=== PATIENT | female | born 1955 | race Caucasian/White ===

== ENCOUNTER 2023-12-26 17:14 | Emergency (ER) | payer MEDICARE ==
[2023-12-26] VITALS (7 sets, daily range): BP systolic 110–149; BP diastolic 58–102
[~2023-12-26] VITALS: Ht 172.7 cm; Wt 82.0 kg
[2023-12-26] MEDS ORDERED: LIDOcaine HCl 1% (Local Anesth.) 20 ML VIAL STI STA (18:12)
[2023-12-26] MEDS ORDERED: POVIDONE IODINE 0.5 OZ/BTL TOP ONE (18:15)
[2023-12-26] MEDS ORDERED: SODIUM CHLORIDE 500 ML BTL IR ONE (18:15)
[2023-12-26] MEDS ORDERED: NEOMYCIN-BACITRACIN-POLYMYXIN 0.5 GM/PAK PAK TOP ONE (18:15)
[2023-12-26] MEDS ORDERED: SODIUM CHLORIDE 1,000 ML BTL IR ONE (18:28)
[2023-12-26] MEDS ORDERED: CEPHALEXIN MONOHYDRATE 500 MG/CAP PO ONE (19:25)
[2023-12-26] MEDS ORDERED: KEFLEX500 MG PO (19:27)
[2023-12-27] MEDS ORDERED: KEFLEX500 MG PO (12:37)
== END 2023-12-26 19:57 | disposition home or self-care (01) ==
LOC: ED 17:14
PROC: 0HQKXZZ Repair Right Lower Leg Skin, External Approach (ICD-10-PCS; principal; 2023-12-26)
DX: S81.811A Laceration without foreign body, right lower leg, initial encounter (principal); W20.8XXA Other cause of strike by thrown, projected or falling object, initial encounter; Y92.009 Unspecified place in unspecified non-institutional (private) residence as the place of occurrence of the external cause